=== PATIENT | male | born 2000 | race Caucasian/White ===

== ENCOUNTER 2021-08-07 13:53 | Emergency (ER) | payer SELFPAY ==
[~2021-08-07] VITALS: Ht 188 cm; Wt 172.4 kg
[~2021-08-07 13:53] MED LIST: BACTROBAN OINT22 GM EXT; IBUPROFEN600 MG PO
== END 2021-08-07 19:20 | disposition home or self-care (01) ==
LOC: ER1 13:53
DX: U07.1 COVID-19 (principal); Z23 Encounter for immunization; E11.9 Type 2 diabetes mellitus without complications; I10 Essential (primary) hypertension; F17.200 Nicotine dependence, unspecified, uncomplicated
CPT/HCPCS: 99283; M0245